=== PATIENT | female | born 1965 | race Caucasian/White ===

== ENCOUNTER 2017-08-30 09:44 | Day surgery (SDC) | payer OTHER, BC ==
[~2017-08-30 09:44] MED LIST: RINGER'S SOLUTION,LACTATED 1,000 ML IV PRN; ceFAZolin SODIUM 1 GM VIAL IV PRN
[2017-08-30] MEDS ORDERED: RINGER'S SOLUTION,LACTATED 1,000 ML IV ONE (10:54)
--- NOTE | 2017-08-30 14:03 | OR ---
Anesthesia Procedure Note - Anesthesia Procedure Note Date of Service: 08/30/17 Narrative: Vital Signs - Last Taken Temp 36.7 C 08/30/17 13:50 Pulse 106 H 08/30/17 13:50 Resp 18 08/30/17 13:50 BP 124/85 08/30/17 13:50 Pulse Ox 95 08/30/17 13:50 O2 Oxygen Delivery Method Room Air 08/30/17 13:59 ANESTHESIA PROCEDURE NOTE Date of Procedure: 08/30/2017. Time of procedure: 1205. Performed by: Fox Costello CRNA Bullet Lubricating Machine Operator: None. Preprocedure diagnosis: Degenerative tear of the glenoid labrum right shoulder. Post procedure diagnosis: Same. Procedure: Right ultrasound guided interacalene nerve block for postoperative analgesia. Indications: The patient is a 51 -year-old female, requesting a right ultrasound -guided interscalene nerve block for postoperative analgesia related to right shoulder arthroscopy and subacromial decompression. Findings: See below. Details of the procedure: The tissue over the intended target site was cleansed with ChloraPrep. 1 ml Lidocaine 1 % was infiltrated to the skin and subcutaneous tissue. Under sterile technique and ultrasound guidance a 22-gauge block needle was inserted to the right braclial plexus nerve bundle between the anterior scalene and the middle scalene muscles. 30 mL's of 0.5% bupivacaine plus epinephrine 1 200,000 was injected after negative aspiration for blood. Needle tip and spread of local anesthetic around the brachial plexus was observed throughout the injection with ultrasound visualization. The needle was removed intact. No complications were noted. The images were retained in the hospital medical database . EBL: Minimal. Fluids: N/A. Specimen: N/A. Post procedure condition: The patient tolerated the procedure well. No complications were noted. Thank you for this consultation. Fox Costello CRNA
[2017-08-30] MEDS ORDERED: RINGER'S SOLUTION,LACTATED 1,000 ML IV PRN (14:44)
[2017-08-30] MEDS ORDERED: oxyCODONE HCL/ACETAMINOPHEN 1 TAB TABLET PO PRN (14:46)
[2017-08-30] MEDS ORDERED: ONDANSETRON HCL/PF 2 MG/ML VIAL IV PRN (14:46)
[2017-08-30 15:26] VITALS: BP 94/51
--- NOTE | 2017-08-30 18:15 | OR ---
Operative Report - Dictated Report Narrative: Date: 08/30/2017 Physician: Aníbal Cary M.D. Pick Pack Worker: Julio Romo PA-C Preoperative diagnosis: Right Shoulder SLAP tear, biceps tear, partial rotator cuff tear Postoperative diagnosis: Right shoulder SLAP tear, biceps tear, partial articular sided rotator cuff tear Procedure: Right shoulder arthroscopy with biceps tenodesis, rotator cuff debridement Anesthesia: General plus regional Complications: None Estimated blood loss: Minimal Specimens: None Retained implants: [employer] 4.5 mm Healicoil anchor Drains: None Indications: Nancy Is a 51 year-old female who has been followed in my clinic with complaints of shoulder pain consistent with superior labral tear and biceps tear. Physical exam and diagnostic imaging were consistent with his complaints and concern for superior labral tear, biceps tear, and partial rotator cuff tear. Conservative measures have failed including, but not limited to, passage of time, activity modification, medications, physical therapy/home exercise program, or injections. The risks, benefits, and alternatives were discussed in clinic. The risks being , bleeding, infection, blood clots, nerve, tendon, ligament, blood vessel injury, persistent pain, arthrosis, stiffness, need for prolonged therapy, need for additional procedures, and persistent symptoms. Consent was obtained in the clinic. Procedure: After marking the correct extremity in the preoperative holding area, a timeout was performed in the operating room. IV antibiotics consisting of 1 g of Ancef were administered prior to the procedure. A general followed by regional anesthetic was induced by the nurse broacher. This was in the supine position, then the patient was transitioned to a beachchair position with all bony prominences well-padded, head in neutral, the nonoperative arm well supported, and the legs padded with SCDs in place. The operative shoulder was then prepped and draped in a standard sterile fashion. Preoperatively the shoulder had full passive range of motion, and no instability. After marking out the bony landmarks, saline was infused into the joint through a posterior lateral portal site. A arias incision was made, and the blunt trocar and cannula was introduced into the shoulder joint. An anterior working portal was placed in the rotator cuff interval using a spinal needle for guidance. Upon initial evaluation, the biceps tendon showed significant fraying and longitudinal tearing extending from the bicipital anchor to just proximal to the top of the bicipital groove. The middle glenohumeral ligament was intact. Subscapularis tendon was intact. The glenoid showed no significant chondral changes. The humeral head articular surface showed no significant chondral changes. The anterior labrum was frayed but intact. The superior labrum demonstrated a type II tear with significant degenerative fraying. The pouch was of normal caliber with no loose bodies. The posterior labrum was intact. The supraspinatus tendon demonstrated partial articular sided tearing involving less than 50% of the thickness of the tendon and involving the anterior 1/2 cm of the tendon. The infraspinatus tendon was intact. Based on the arthroscopic findings, as well as exam and radiographic findings, it was elected to proceed with arthroscopic biceps tenodesis and rotator cuff debridement. A 4.5 mm suture anchor was placed at the superior aspect of the bicipital groove. One suture limb was passed around the biceps tendon twice and then through it just distal to the longitudinally torn portion of the tendon. This was then tied down anchoring the biceps tendon just proximal to the superior aspect of the groove. The biceps was then tenotomized at the bicipital anchor. A 4.0 mm shaver was then used to lightly debride the superior labrum as well as the biceps tendon stump. The shaver was also used to perform light debridement of the articular side of the supraspinatus tendon. Attention was then turned to the subacromial space. Subacromial bursectomy was performed utilizing the prior portals. The coracoacromial ligament was noted to be intact. The bursal side of the rotator cuff demonstrated no tearing or obvious wear. The acromial arch demonstrated normal morphology without any obvious signs of subacromial impingement. Once it was felt that we had adequately addressed the shoulder pathology, all arthroscopic instruments were removed from the shoulder after draining the shoulder of fluid. Portal sites were closed with interrupted nylon. Dressings consisting of Xeroform, 4 x 4, ABD, soft roll, and tape were applied. All sponge, needle, blade, and instrument counts were correct prior to closing the wounds. The patient was awoken and transferred to the postanesthesia care unit in stable condition.
== END 2017-08-30 09:45 | disposition home or self-care (01) ==
LOC: AMB 09:44
PROVIDERS: ATTEND Orthopaedic Surgery
PROC: 0LS14ZZ Reposition Right Shoulder Tendon, Percutaneous Endoscopic Approach (ICD-10-PCS; 2017-08-30)
PROC: 3E0T3BZ Introduction of Anesthetic Agent into Peripheral Nerves and Plexi, Percutaneous Approach (ICD-10-PCS; 2017-08-30)
PROC: 0RBJ4ZZ Excision of Right Shoulder Joint, Percutaneous Endoscopic Approach (ICD-10-PCS; principal; 2017-08-30 13:15)
DX: S43.431D Superior glenoid labrum lesion of right shoulder, subsequent encounter (principal); M75.111 Incomplete rotator cuff tear or rupture of right shoulder, not specified as traumatic; S46.111D Strain of muscle, fascia and tendon of long head of biceps, right arm, subsequent encounter; F41.1 Generalized anxiety disorder; F32.9 Major depressive disorder, single episode, unspecified; F17.200 Nicotine dependence, unspecified, uncomplicated; Z68.26 Body mass index [BMI] 26.0-26.9, adult
CPT/HCPCS: 29822; 29828; 64415; J2405